=== PATIENT | male | born 1985 | race Caucasian/White ===

== ENCOUNTER 2017-09-29 08:53 | Emergency (ER) | payer BC, OTHER ==
[~2017-09-29] VITALS: Ht 175.3 cm; Wt 126.7 kg
[~2017-09-29 08:53] MED LIST: REVIEWED
[2017-09-29 08:54] VITALS: TEMP 36.9; Ht 175.3 cm; Wt 126.7 kg
[2017-09-29 09:11] VITALS: O2SAT 97
[2017-09-29 09:59] LABS: BASO % 0.5 %; BASO ABS # 0.03 K/uL (0-0.2); EOS % 4.3 %; EOS ABS # 0.25 K/uL (0-0.5); HEMATOCRIT 42.9 % (42-52); HEMOGLOBIN 15.1 g/dL (14.0-18.0); IG# 0.02 K/uL (0.00-0.02); LYMPH % 23.5 %; LYMPH ABS # 1.38 K/uL (1.2-3.4); MEAN CELL VOLUME 82.2 fL (80-100); MEAN CORPUSCULAR HEMOGLOBIN 28.9 pg (25-34); MEAN CORPUSCULAR HGB CONC 35.2 g/dl (32-36); MEAN PLATELET VOLUME 8.7 fL (7.4-10.4); MONO % 7.8 %; MONO ABS # 0.46 K/uL (0.11-0.59); NEUT % 63.6 %; NEUT ABS # 3.74 K/uL (1.4-6.5); PLATELET COUNT 196 K/uL (130-400); RED CELL DISTRIBUTION WIDTH CV 13.5 % (11.5-14.5); RED CELL DISTRIBUTION WIDTH SD 40.6 fL (36.4-46.3); WHITE BLOOD COUNT 5.88 K/uL (4.8-10.8)
--- NOTE | 2017-09-29 10:02 | EMERGENCY ROOM VISIT NOTE ---
History Report prepared by Venkat: Omari Tijerina Under the Supervision of: Dr. Luke Orozco M.D. First contact with patient: 09:34 Chief Complaint: CHEST PAIN Stated Complaint: CHEST PAIN Nursing Triage Summary: Sudden onset of CP while loading boxes at work today. pt reports it was sharp, mid chest. Associated SOB. Pain has decreased, now 2/10. denies SOB currently. pt reports episode of CP last week while working outside History of Present Illness The patient is a 32 year old white male with a past medical history of HLD and gout who presents to the ED with a cc of resolved, central chest cramping that occurred 2.5 hours ago. Pt states he was lifting boxes when his symptoms began, and his cramping lasted for 15-20 minutes. Standing up helped his symptoms go away. 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 Positive tingling in both arms, nausea, mild lightheadedness, mild heart racing. Negative numbness to the arms or legs, radiating pain, vomiting, a history of know medical problems, drug use, tobacco use, recent falls, a history of blood clots in the legs or lungs. He notes walking did not change the intensity of his pain. Pt occasionally uses alcohol. Pt has a family history of heart disease before the age of 65. Source of History: patient Onset: 2.5 hours ago Position: chest (central) Quality: cramping Timing: resolved Modifying Factors (Relieving): other (standing up) Associated Symptoms: + nausea, No vomiting, No numbness (to the arms or legs ) Note: Associated symptoms: tingling in both arms, mild lightheadedness, mild heart racing Denies: radiating pain Review of Systems See HPI for pertinent positives and negatives. A total of ten systems were reviewed and were otherwise negative. Past Medical & Surgical Medical Problems: (1) Gout Nos (2) Hyperlipidemia Nec/Nos Surgical Problems: (1) No significant past surgical history Family History Heart disease Social History Smoking Status: Never Smoker Alcohol Use: occasionally Marital Status: single Occupation Status: employed Current/Historical Medications No Active Prescriptions or Reported Meds Allergies Coded Allergies: No Known Allergies (Unverified , 09/29/17) Physical Exam Vital Signs Date Time Temp Pulse Resp B/P (MAP) Pulse Ox O2 Delivery O2 Flow Rate FiO2 09/29/17 13:30 102 18 150/90 99 09/29/17 12:20 80 22 144/101 98 Room Air 09/29/17 10:19 81 18 138/87 97 Room Air 09/29/17 09:23 90 09/29/17 09:11 96 Room Air 09/29/17 09:11 97 Room Air 09/29/17 08:54 36.9 97 18 149/89 98 Room Air Physical Exam GENERAL: Awake, alert, well-appearing, NAD HENT: Normocephalic, atraumatic. EYES: Normal conjunctiva. Sclera non-icteric. PERRL. No anisocoria. NECK: Supple. No nuchal rigidity. FROM. RESPIRATORY: CTAB, no rhonchi, wheezing, crackles CARDIAC: RRR, no MRG ABDOMEN: Soft, NTND, BS+ MSK: No chest wall TTP, no LE edema. No calf pain. Negative Homans sign. NEURO: GCS 15, CN 2-12 intact, moves all 4s on command SKIN: No rash or jaundice noted. Medical Decision & Procedures ER Provider Diagnostic Interpretation: X-ray: Per my interpretation, radiologist review. CHEST ONE VIEW PORTABLE CLINICAL HISTORY: Chest pain. COMPARISON STUDY: Chest radiograph June 09, 2009. FINDINGS: Mild elevation of the right hemidiaphragm is noted. There is no pneumothorax or pleural effusion. There is no consolidation or evidence for pulmonary edema. Cardiac size is at the upper limits of normal. IMPRESSION: No acute cardiopulmonary findings. Electronically signed by: Barber Youngblood M.D. 09/29/2017 10:22 AM Dictated Date/Time: 09/29/2017 10:21 AM Laboratory Results 09/29/17 09:09 Red Blood Count 5.22, Mean Corpuscular Volume 82.2, Mean Corpuscular Hemoglobin 28.9, Mean Corpuscular Hemoglobin Concent 35.2, Mean Platelet Volume 8.7, Neutrophils (%) (Auto) 63.6, Lymphocytes (%) (Auto) 23.5, Monocytes (%) (Auto) 7.8, Eosinophils (%) (Auto) 4.3, Basophils (%) (Auto) 0.5, Neutrophils # (Auto) 3.74, Lymphocytes # (Auto) 1.38, Monocytes # (Auto) 0.46, Eosinophils # (Auto) 0.25, Basophils # (Auto) 0.03 09/29/17 09:09 Test 09/29/17 09:09 09/29/17 11:28 White Blood Count 5.88 K/uL (4.8-10.8) Red Blood Count 5.22 M/uL (4.7-6.1) Hemoglobin 15.1 g/dL (14.0-18.0) Hematocrit 42.9 % (42-52) Mean Corpuscular Volume 82.2 fL (80-100) Mean Corpuscular Hemoglobin 28.9 pg (25-34) Mean Corpuscular Hemoglobin Concent 35.2 g/dl (32-36) Platelet Count 196 K/uL (130-400) Mean Platelet Volume 8.7 fL (7.4-10.4) Neutrophils (%) (Auto) 63.6 % Lymphocytes (%) (Auto) 23.5 % Monocytes (%) (Auto) 7.8 % Eosinophils (%) (Auto) 4.3 % Basophils (%) (Auto) 0.5 % Neutrophils # (Auto) 3.74 K/uL (1.4-6.5) Lymphocytes # (Auto) 1.38 K/uL (1.2-3.4) Monocytes # (Auto) 0.46 K/uL (0.11-0.59) Eosinophils # (Auto) 0.25 K/uL (0-0.5) Basophils # (Auto) 0.03 K/uL (0-0.2) RDW Standard Deviation 40.6 fL (36.4-46.3) RDW Coefficient of Variation 13.5 % (11.5-14.5) Immature Granulocyte % (Auto) 0.3 % Immature Granulocyte # (Auto) 0.02 K/uL (0.00-0.02) Prothrombin Time 10.0 SECONDS (9.0-12.0) Prothromb Time International Ratio 1.0 (0.9-1.1) Activated Partial Thromboplast Time 28.8 SECONDS (21.0-31.0) Partial Thromboplastin Ratio 1.1 Anion Gap 6.0 mmol/L (3-11) Est Creatinine Clear Calc Drug Dose 122.5 ml/min Estimated GFR () 98.1 Estimated GFR (Non- 84.6 BUN/Creatinine Ratio 15.5 (10-20) Calcium Level 8.9 mg/dl (8.5-10.1) Magnesium Level 2.2 mg/dl (1.8-2.4) Total Bilirubin 0.5 mg/dl (0.2-1) Direct Bilirubin 0.1 mg/dl (0-0.2) Aspartate Amino Transf (AST/SGOT) 37 U/L (15-37) Alanine Aminotransferase (ALT/SGPT) 70 U/L (12-78) Alkaline Phosphatase 57 U/L (45-117) Troponin I 0.057 ng/ml (0-0.045) Pro-B-Type Natriuretic Peptide 61 pg/ml (0-450) Total Protein 8.2 gm/dl (6.4-8.2) Albumin 4.0 gm/dl (3.4-5.0) Lipase 150 U/L (73-393) Bedside Troponin I 0.100 ng/ml (0-0.045) Laboratory results reviewed by me Medications Administered Medications (Trade) Dose Ordered Sig/Terry Route Start Time Stop Time Status Last Admin Dose Admin Ketorolac Tromethamine (Toradol Inj) 30 mg NOW STAT IV 09/29/17 11:02 09/29/17 11:04 DC 09/29/17 11:36 30 MG Colchicine (Colchicine Tab) 0.6 mg NOW ONCE PO 09/29/17 11:15 09/29/17 11:16 DC 09/29/17 11:36 0.6 MG ECG Per My Interpretation Indication: chest pain Rate (beats per minute): 95 Rhythm: normal sinus Findings: T-wave inversion (AVL), ST elevation (Subtle elevation in lead III and AVF), other (Normal intervals. Normal axis.) ED Course 0936: The patient was evaluated in room A09B. A complete history and physical exam was performed. 1042: I reevaluated the patient and updated him of his current exam findings. I told him we will be getting a repeat troponin level. 1159: I reevaluated the patient and discussed his updated test findings. 1214: I discussed the patient's case with Dr. Delgadillo, Cardiology. He recommended a hospitalist evaluation for further management and care. 1246: I reevaluated the patient. I discussed the need for a hospitalist evaluation. The patient does not want to stay and wants to sign out AMA. 1325: The patient left AMA. Medical Decision Nursing notes reviewed. Ancillary studies and prior records reviewed. The patient is a 32 year old white male with a past medical history of HLD and gout who presents to the ED with a cc of resolved, central chest cramping that occurred 2.5 hours ago. Differential diagnosis: Etiologies such as cardiac ischemia, aortic dissection, pulmonary embolism, pneumonia, pneumothorax, musculoskeletal, infections, pericarditis, myocarditis , esophageal rupture, gastrointestinal, as well as others were entertained. Patient was seen and evaluated the bedside. Patient does have a prior history of hyperlipidemia the patient stated that he had some chest pain while loading some boxes morning. Patient described as central nonradiating and crampy. Patient did not take any medications. Patient does not have a family history in parents or siblings of an [place] under the age of 65. Patient denies true exertional symptoms, vomiting or diaphoresis. Questionable nausea. Patient did not receive any medications in route patient denies any active chest pain. Patient did have blood work completed along with EKG, troponin, chest x-ray. Patient's chest x-ray that the high limit of normal with regard heart size. No evidence of any effusion. The patient blood work did have a mildly elevated troponin. The patient did complain of some mild improvement in symptoms when he sits upright versus lying down. He may have an element of pericarditis and resultant myocarditis. The patient's EKG does show subtle elevations in 3 and aVF but do not appear diffuse. He denies any recent infectious symptoms. Patient was given NSAIDs as well as colchicine. The patient also had a repeat troponin completed. I discussed the case with the on-call junior linux systems administrator. He recommended keeping the patient for further evaluation treatment. I did discuss this with the patient he declined to stay. I discussed the risks versus benefits of stay in the hospital versus leaving AMA. The patient would like to leave AMA. I discussed patient with the on-call caseworker intake who did arrange a follow-up appointment with a PCP tomorrow morning. Of note the patient was walked and the patient did not have any recurrent or exertional symptoms. Medication Reconcilliation Current Medication List: was personally reviewed by me Blood Pressure Screening Patient's blood pressure: Elevated blood pressure Blood pressure disposition: Referred to PCP Consults Time Called: 1201 Consulting Physician: Dr. Elie, Cardiology Returned Call: 1214 I discussed the patient's case with Dr. Delgadillo, Cardiology. He recommended a hospitalist evaluation for further management and care. Impression Primary Impression: Chest pain Additional Impression: Elevated troponin Scribe Attestation The scribe's documentation has been prepared under my direction and personally reviewed by me in its entirety. I confirm that the note above accurately reflects all work, treatment, procedures, and medical decision making performed by me. Departure Information Dispostion Against Medical Advice Prescriptions No Active Prescriptions or Reported Meds Referrals Leandro Santos M.D. (PCP) Patient Instructions My [facility] Problem Qualifiers
[2017-09-29 10:10] LABS: PTT PATIENT 28.8 SECONDS (21.0-31.0)
[2017-09-29 10:16] LABS: CALCIUM 8.9 mg/dl (8.5-10.1); CREATININE 1.14 mg/dl (0.60-1.40); POTASSIUM 3.9 mmol/L (3.5-5.1); TOTAL PROTEIN 8.2 gm/dl (6.4-8.2)
--- NOTE | 2017-09-29 10:23 | DIAGNOSTIC IMAGING REPORT ---
CHEST ONE VIEW PORTABLE CLINICAL HISTORY: Chest pain. COMPARISON STUDY: Chest radiograph June 09, 2009. FINDINGS: Mild elevation of the right hemidiaphragm is noted. There is no pneumothorax or pleural effusion. There is no consolidation or evidence for pulmonary edema. Cardiac size is at the upper limits of normal. IMPRESSION: No acute cardiopulmonary findings. Electronically signed by: Barber Youngblood M.D. 09/29/2017 10:22 AM Dictated Date/Time: 09/29/2017 10:21 AM
[2017-09-29] MEDS ORDERED: KETOROLAC TROMETHAMINE 30 MG/ML VIAL IV STA (11:02)
[2017-09-29] MEDS ORDERED: COLCHICINE 0.6 MG TAB PO ONE (11:15)
[2017-09-29 13:30] VITALS: BP 150/90; PULSE 102; O2SAT 99
[2017-09-30] MEDS ORDERED: NAPR1TAB9 PO (09:29)
[2017-09-30] MEDS ORDERED: IBUP-1050 PO (09:29)
[2017-10-01] MEDS ORDERED: LPT40 PO (11:32)
[2017-10-01] MEDS ORDERED: ASPI-320 PO (11:32)
[2017-10-01] MEDS ORDERED: BRL90 PO (11:32)
== END 2017-09-29 13:31 | disposition left against medical advice (07) ==
LOC: C.EDB 08:55 → C.EDA 13:31
DX: R07.9 Chest pain, unspecified (principal); R79.89 Other specified abnormal findings of blood chemistry; R03.0 Elevated blood-pressure reading, without diagnosis of hypertension; Z86.39 Personal history of other endocrine, nutritional and metabolic disease; Z82.49 Family history of ischemic heart disease and other diseases of the circulatory system